=== PATIENT | male | born 2000 | race African-American/Black ===

== ENCOUNTER → 2021-06-06 | Outpatient (CLI) | payer OTHER | LOC: M PLAIMG 14:22 | PROVIDERS: ATTEND Physician Assistant | DX: M54.50 Low back pain, unspecified (principal) ==

== ENCOUNTER → 2021-07-28 | Outpatient (REF) | LOC: M PLAIMG 10:27 | PROVIDERS: ATTEND Internal Medicine | DX: R06.02 Shortness of breath (principal); M54.50 Low back pain, unspecified; M54.2 Cervicalgia ==